=== PATIENT | female | born 1985 | race Caucasian/White ===

== ENCOUNTER → 2017-05-09 | Outpatient (REF) | payer OTHER | LOC: M LAB REF 09:28 | DX: J11.1 Influenza due to unidentified influenza virus with other respiratory manifestations (principal) | CPT/HCPCS: 87633 ==

== ENCOUNTER 2018-01-02 06:27 | Emergency (ER) | payer OTHER ==
[2018-01-02] MEDS: ONDANSETRON 4MG/2ML VIAL (J2405) IV (07:26)
[2018-01-02] MEDS: NS 1,000 ML IV (07:26)
[2018-01-02 07:31] LABS: BASO # 0.1 10^3/uL (0.0-0.2); BASO % 0.3 % (0.0-1.0); EOS % 0.1 % (0.0-3.0); HEMATOCRIT 45.2 % (36.0-47.0); HEMOGLOBIN 14.8 g/dl (12.0-15.5); IMMATURE GRANULOCYTE % 0.4 % (0-3.0); LYMPH # 2.4 10^3/uL (1.5-4.5); LYMPH % 12.9 % (24.0-44.0); MEAN CORPUSCULAR HEMOGLOBIN 28.8 pg (27.0-33.0); MEAN CORPUSCULAR HGB CONC 32.7 g/dl (32.0-36.5); MEAN CORPUSCULAR VOLUME 87.9 fl (80.0-96.0); MONO # 1.1 10^3/uL (0.0-0.8); MONO % 5.7 % (0.0-5.0); NEUTROPHILS # 14.9 10^3/uL (1.8-7.7); NEUTROPHILS % 80.6 % (36.0-66.0); PLATELET COUNT, AUTOMATED 285 10^3/uL (150-450); RED BLOOD COUNT 5.14 10^6/uL (4.00-5.40); WHITE BLOOD COUNT 18.4 10^3/uL (4.0-10.0)
[2018-01-02] MEDS: PANTOPRAZOLE 40MG INJ (PROTONIX) (C9113) IV (07:34)
[2018-01-02 07:44] LABS: ALBUMIN 3.4 GM/DL (3.2-5.2); ALBUMIN/GLOBULIN RATIO 0.97 (1.00-1.93); ALKALINE PHOSPHATASE 111 U/L (45-117); ALT/SGPT 58 U/L (12-78); ANION GAP 10 MEQ/L (8-16); AST/SGOT 26 U/L (7-37); BILIRUBIN,DIRECT 0.1 MG/DL (0.0-0.2); BILIRUBIN,TOTAL 0.4 MG/DL (0.2-1.0); BLOOD UREA NITROGEN 10 MG/DL (7-18); CALCIUM LEVEL 8.6 MG/DL (8.5-10.1); CARBON DIOXIDE LEVEL 21 MEQ/L (21-32); CHLORIDE LEVEL 111 MEQ/L (98-107); CREATININE FOR GFR 0.71 MG/DL (0.55-1.30); GLOMERULAR FILTRATION RATE > 60.0 (>60); GLUCOSE, FASTING 92 MG/DL (70-100); LIPASE 119 U/L (73-393); POTASSIUM SERUM 4.1 MEQ/L (3.5-5.1); SODIUM LEVEL 142 MEQ/L (136-145); TOTAL PROTEIN 6.9 GM/DL (6.4-8.2)
[2018-01-02 07:55] LABS: CONTROL LINE HCG INT CTR LINE PRESENT; HCG, SERUM QUALITATIVE NEGATIVE (NEGATIVE)
[2018-01-02] MEDS ORDERED: ISOVUE-370 76% 100ML VIAL (Q9967) As Ordered (08:14)
== END 2018-01-02 09:58 | disposition home or self-care (01) ==
LOC: M ED 06:27
DX: N83.201 Unspecified ovarian cyst, right side (principal); N80.9 Endometriosis, unspecified; Z88.1 Allergy status to other antibiotic agents; Z91.048 Other nonmedicinal substance allergy status; F17.210 Nicotine dependence, cigarettes, uncomplicated
CPT/HCPCS: C9113

== ENCOUNTER 2018-03-07 17:49 | Emergency (ER) | payer OTHER ==
[2018-03-07] MEDS: CLINDAMYCIN 900 MG in APPROPRIATE DILUENT 1 EA IV (19:01)
[2018-03-07] MEDS: KETOROLAC 30 MG/ML VIAL (J1885) IV (19:01)
[2018-03-07] MEDS: NS 1,000 ML IV (19:01)
[2018-03-07 19:02] LABS: BASO # 0.1 10^3/uL (0.0-0.2); BASO % 0.4 % (0.0-1.0); EOS # 0.2 10^3/uL (0.0-0.50); EOS % 1.3 % (0.0-3.0); HEMATOCRIT 47.1 % (36.0-47.0); HEMOGLOBIN 15.2 g/dl (12.0-15.5); IMMATURE GRANULOCYTE % 0.3 % (0-3.0); LYMPH # 3.5 10^3/uL (1.5-4.5); LYMPH % 29.6 % (24.0-44.0); MEAN CORPUSCULAR HGB CONC 32.3 g/dl (32.0-36.5); MEAN CORPUSCULAR VOLUME 89.7 fl (80.0-96.0); MONO # 1.2 10^3/uL (0.0-0.8); MONO % 10.2 % (0.0-5.0); NEUTROPHILS # 6.9 10^3/uL (1.8-7.7); NEUTROPHILS % 58.2 % (36.0-66.0); PLATELET COUNT, AUTOMATED 264 10^3/uL (150-450); RED BLOOD COUNT 5.25 10^6/uL (4.00-5.40); RED CELL DISTRIBUTION WIDTH 13.1 % (11.5-14.5); WHITE BLOOD COUNT 11.9 10^3/uL (4.0-10.0)
[2018-03-07 19:21] LABS: ERYTHROCYTE SEDIMENTATION RATE 51 mm/hr (0-20)
[2018-03-07 19:28] LABS: ANION GAP 5 MEQ/L (8-16); BLOOD UREA NITROGEN 10 MG/DL (7-18); C REACTIVE PROTEIN QUANTITATIV 1.51 MG/DL (0.00-0.30); CALCIUM LEVEL 8.8 MG/DL (8.5-10.1); CARBON DIOXIDE LEVEL 27 MEQ/L (21-32); CHLORIDE LEVEL 107 MEQ/L (98-107); CREATININE FOR GFR 0.95 MG/DL (0.55-1.30); GLOMERULAR FILTRATION RATE > 60.0 (>60); GLUCOSE, FASTING 86 MG/DL (70-100); POTASSIUM SERUM 4.3 MEQ/L (3.5-5.1); SODIUM LEVEL 139 MEQ/L (136-145)
[2018-03-07] MEDS ORDERED: ISOVUE-370 76% 100ML VIAL (Q9967) As Ordered (19:33)
== END 2018-03-07 21:36 | disposition home or self-care (01) ==
LOC: M ED 17:49
DX: L03.211 Cellulitis of face (principal); I10 Essential (primary) hypertension; N80.9 Endometriosis, unspecified; Q21.0 Ventricular septal defect; Z72.0 Tobacco use; J32.0 Chronic maxillary sinusitis; Z91.89 Other specified personal risk factors, not elsewhere classified; Z88.6 Allergy status to analgesic agent; Z88.5 Allergy status to narcotic agent; Z88.1 Allergy status to other antibiotic agents; Z88.8 Allergy status to other drugs, medicaments and biological substances
CPT/HCPCS: Q9967

== ENCOUNTER → 2018-03-07 | Outpatient (CLI) | payer OTHER ==
[~2018-03-07] MED LIST: ALBU17IN2 INH; BENZ200C70 PO; CLEO300C2 PO; KETO10TAB PO; LABE20TAB PO; REGL10TA6 PO; TYLE1000 PO; TYLE167L PO; ZOFR4TAB14 PO; ZOFR4TAB16 PO
[2018-03-07 13:50] LABS: BASO % 0.3 % (0.0-1.0); EOS # 0.2 10^3/uL (0.0-0.50); EOS % 1.2 % (0.0-3.0); HEMATOCRIT 45.1 % (36.0-47.0); HEMOGLOBIN 14.8 g/dl (12.0-15.5); MEAN CORPUSCULAR HEMOGLOBIN 28.8 pg (27.0-33.0); MEAN CORPUSCULAR HGB CONC 32.8 g/dl (32.0-36.5); MEAN CORPUSCULAR VOLUME 87.7 fl (80.0-96.0); MONO % 8.2 % (0.0-5.0); NEUTROPHILS # 7.3 10^3/uL (1.8-7.7); NEUTROPHILS % 58.1 % (36.0-66.0); PLATELET COUNT, AUTOMATED 253 10^3/uL (150-450); RED BLOOD COUNT 5.14 10^6/uL (4.00-5.40); WHITE BLOOD COUNT 12.6 10^3/uL (4.0-10.0)
[2018-03-07 14:17] LABS: ALBUMIN 3.7 GM/DL (3.2-5.2); ALT/SGPT 24 U/L (12-78); BILIRUBIN,TOTAL 0.4 MG/DL (0.2-1.0); BLOOD UREA NITROGEN 9 MG/DL (7-18); CARBON DIOXIDE LEVEL 26 MEQ/L (21-32); CHLORIDE LEVEL 107 MEQ/L (98-107); CREATININE FOR GFR 0.73 MG/DL (0.55-1.30); GLOMERULAR FILTRATION RATE > 60.0 (>60); GLUCOSE, FASTING 85 MG/DL (70-100); POTASSIUM SERUM 4.2 MEQ/L (3.5-5.1); SODIUM LEVEL 140 MEQ/L (136-145); TOTAL PROTEIN 6.7 GM/DL (6.4-8.2)
== END ==
LOC: M WUC 11:35
PROVIDERS: ATTEND Physician Assistant
DX: L02.01 Cutaneous abscess of face (principal)

== ENCOUNTER 2018-10-29 07:18 | Emergency (ER) | payer MEDICAID, OTHER ==
[~2018-10-29] VITALS: Ht 162.6 cm; Wt 74.9 kg
[2018-10-29 08:14] LABS: BASO % 0.4 % (0.0-1.0); EOS # 0.1 10^3/uL (0.0-0.50); EOS % 0.7 % (0.0-3.0); HEMATOCRIT 44.9 % (36.0-47.0); HEMOGLOBIN 14.5 g/dl (12.0-15.5); LYMPH # 2.8 10^3/uL (1.5-4.5); LYMPH % 30.6 % (24.0-44.0); MEAN CORPUSCULAR HEMOGLOBIN 29.4 pg (27.0-33.0); MEAN CORPUSCULAR HGB CONC 32.3 g/dl (32.0-36.5); MEAN CORPUSCULAR VOLUME 91.1 fl (80.0-96.0); MONO # 0.9 10^3/uL (0.0-0.8); MONO % 9.3 % (0.0-5.0); NEUTROPHILS # 5.4 10^3/uL (1.8-7.7); NEUTROPHILS % 58.6 % (36.0-66.0); PLATELET COUNT, AUTOMATED 259 10^3/uL (150-450); RED BLOOD COUNT 4.93 10^6/uL (4.00-5.40); WHITE BLOOD COUNT 9.1 10^3/uL (4.0-10.0)
[2018-10-29 08:37] LABS: ALBUMIN 3.5 GM/DL (3.2-5.2); ALT/SGPT 14 U/L (12-78); BILIRUBIN,DIRECT 0.1 MG/DL (0.0-0.2); BILIRUBIN,TOTAL 0.4 MG/DL (0.2-1.0); BLOOD UREA NITROGEN 9 MG/DL (7-18); CALCIUM LEVEL 8.3 MG/DL (8.5-10.1); CARBON DIOXIDE LEVEL 24 MEQ/L (21-32); CHLORIDE LEVEL 111 MEQ/L (98-107); CREATININE FOR GFR 0.77 MG/DL (0.55-1.30); GLOMERULAR FILTRATION RATE > 60.0 (>60); GLUCOSE, FASTING 84 MG/DL (70-100); HCG, SERUM QUANTITATIVE 746 MIU/ML; LIPASE 114 U/L (73-393); POTASSIUM SERUM 3.4 MEQ/L (3.5-5.1); SODIUM LEVEL 142 MEQ/L (136-145)
--- NOTE | 2018-10-29 09:51 | REP ---
REASON: Pelvic cramping. No pertinent priors. Transvesical and transvaginal imaging was obtained. The uterus measures 9.2 x 4.4 x 6.1 cm. The parenchymal echo pattern is within normal limits. Within the endometrial cavity, there is a tiny anechoic structure with increased echo surrounding it consistent with a decidual reaction. The mean gestational sac measurement is consistent with a 5 week 0 day gestational age. Doppler interrogation of the gestational sac shows no cardiac activity. There is no evidence of echogenic material within the gestational sac that would be considered consistent with a pole at this time. The right ovary measures 3.1 x 1.6 x 2.4 cm and is within normal limits with an RI of 0.67. The left ovary measures 2.9 x 1.8 x 2.8 cm. Within the right ovary, there is a 2.4 cm size anechoic structure with possibly a corpus luteal cyst. It has slightly irregular johnson and may be decompressing. Doppler of the left ovary shows increased color flow surrounding the hypoechoic structure. IMPRESSION: There is no evidence of a living intrauterine . There does appear to be a gestational sac in the endometrial cavity as described above. I cannot completely rule out the possibility of a pseudogestational sac consistent with an ectopic , however, no definite ectopic is identified at this time. There is no free fluid. If in fact the finding represents an intrauterine based on the mean sac diameter, it is consistent with a 5 week 0 day gestational age. This examination needs to be correlated clinically with close followup. Electronically Signed by Syed Haq DO 10/29/2018 10:06 A
[2018-10-29 10:29] VITALS: BP 128/65
== END 2018-10-29 10:30 | disposition home or self-care (01) ==
LOC: M ED 07:18
DX: O26.891 Other specified pregnancy related conditions, first trimester (principal); O99.281 Endocrine, nutritional and metabolic diseases complicating pregnancy, first trimester; O99.331 Smoking (tobacco) complicating pregnancy, first trimester; O34.81 Maternal care for other abnormalities of pelvic organs, first trimester; Z32.01 Encounter for pregnancy test, result positive; Z86.19 Personal history of other infectious and parasitic diseases; Z87.59 Personal history of other complications of pregnancy, childbirth and the puerperium; Z87.74 Personal history of (corrected) congenital malformations of heart and circulatory system; Z86.79 Personal history of other diseases of the circulatory system; Z88.6 Allergy status to analgesic agent; Z91.89 Other specified personal risk factors, not elsewhere classified; Z88.1 Allergy status to other antibiotic agents; Z88.5 Allergy status to narcotic agent; Z88.8 Allergy status to other drugs, medicaments and biological substances

== ENCOUNTER → 2018-10-31 | Outpatient (REF) | payer MEDICAID | LOC: M LAB REF 12:47 | PROVIDERS: ATTEND Obstetrics & Gynecology | DX: O36.80X0 Pregnancy with inconclusive fetal viability, not applicable or unspecified (principal); Z3A.00 Weeks of gestation of pregnancy not specified ==

== ENCOUNTER → 2018-11-09 | Outpatient (REF) | payer MEDICAID ==
[2018-11-09 17:50] LABS: HEMATOCRIT 42.8 % (36.0-47.0); MEAN CORPUSCULAR HEMOGLOBIN 30.4 pg (27.0-33.0); MEAN CORPUSCULAR HGB CONC 32.7 g/dl (32.0-36.5); MEAN CORPUSCULAR VOLUME 92.8 fl (80.0-96.0); PLATELET COUNT, AUTOMATED 263 10^3/uL (150-450); RED BLOOD COUNT 4.61 10^6/uL (4.00-5.40); WHITE BLOOD COUNT 12.2 10^3/uL (4.0-10.0)
[2018-11-10 11:06] LABS: HEPATITIS C VIRUS ABY INDEX < 0.0 INDEX (<0.8); HIV 1&2 SCREEN CENTAUR NEGATIVE (NEGATIVE); RUBELLA IgG QUALITATIVE IMMUNE (IMMUNE)
== END ==
LOC: M LAB REF 16:47
PROVIDERS: ATTEND Obstetrics & Gynecology
DX: Z34.81 Encounter for supervision of other normal pregnancy, first trimester (principal)

== ENCOUNTER → 2018-11-30 | Outpatient (CLI) | payer OTHER ==
[~2018-11-30] MED LIST changes: -ALBU17IN2 INH; +PROV108A INH
--- NOTE | 2018-11-30 11:44 | REP ---
FIRST TRIMESTER ULTRASOUND: Real-time sonographic evaluation of the gravid uterus is performed. There is a single living intrauterine gestation with an estimated gestational age 9 weeks 1 day based on a crown-rump length of 25 mm, EDC 07/04/2019. heart rate is 172 blood pressure. There is no subchorionic hemorrhage. Complex cystic structure of the left ovary probably represents a corpus luteum, approximately 1.8 cm in diameter. There is no torsion. Electronically Signed by Eddie Nelson MD 11/30/2018 02:07 P
== END ==
LOC: M RAD 08:49
PROVIDERS: ATTEND Obstetrics & Gynecology
DX: R10.2 Pelvic and perineal pain (principal); Z3A.09 9 weeks gestation of pregnancy

== ENCOUNTER 2018-12-08 01:40 | Emergency (ER) | payer OTHER ==
[~2018-12-08] VITALS: Ht 162.6 cm; Wt 74.6 kg
[2018-12-08 02:47] VITALS: BP 129/82
--- NOTE | 2018-12-08 07:28 | REP ---
Clinical: Right angle injury . Technique: AP, lateral, bilateral oblique views. Findings: No acute fracture or dislocation. Skeletal structures and joint spaces are intact and normal. Ankle mortise appears stable. No subcutaneous emphysema or radiodense foreign body. Impression: Normal right ankle radiograph series. Electronically Signed by Raffi Reed MD 12/08/2018 07:20 A
== END 2018-12-08 02:48 | disposition home or self-care (01) ==
LOC: M ED 01:40
DX: O9A.219 Injury, poisoning and certain other consequences of external causes complicating pregnancy, unspecified trimester (principal); S93.401A Sprain of unspecified ligament of right ankle, initial encounter; W10.9XXA Fall (on) (from) unspecified stairs and steps, initial encounter; Y92.009 Unspecified place in unspecified non-institutional (private) residence as the place of occurrence of the external cause; Z88.1 Allergy status to other antibiotic agents; Z88.5 Allergy status to narcotic agent; Z88.6 Allergy status to analgesic agent; Z91.048 Other nonmedicinal substance allergy status

== ENCOUNTER → 2019-03-30 | Outpatient (CLI) | payer OTHER, MEDICAID ==
[2019-03-30 14:36] LABS: HEMATOCRIT 34.7 % (36.0-47.0); HEMOGLOBIN 11.5 g/dl (12.0-15.5); MEAN CORPUSCULAR HEMOGLOBIN 30.6 pg (27.0-33.0); MEAN CORPUSCULAR HGB CONC 33.1 g/dl (32.0-36.5); MEAN CORPUSCULAR VOLUME 92.3 fl (80.0-96.0); PLATELET COUNT, AUTOMATED 245 10^3/uL (150-450); RED BLOOD COUNT 3.76 10^6/uL (4.00-5.40); WHITE BLOOD COUNT 13.5 10^3/uL (4.0-10.0)
== END ==
LOC: M LAB 12:45
PROVIDERS: ATTEND Obstetrics & Gynecology
DX: Z34.82 Encounter for supervision of other normal pregnancy, second trimester (principal); Z36.89 Encounter for other specified antenatal screening

== ENCOUNTER 2019-05-20 19:48 | Outpatient (CLI) | payer OTHER, MEDICAID ==
[~2019-05-20] VITALS: Ht 165.1 cm; Wt 86.1 kg
[2019-05-20 20:02] VITALS: BP 148/80
[2019-05-20] MEDS ORDERED: LACTATED RINGER'S 1000 ML IV STA (20:24)
[2019-05-20] MEDS ORDERED: LR 1,000 ML IV SCH (20:24)
[2019-05-20] MEDS ORDERED: ONDANSETRON 4 MG ORAL DISINTEGRATING TAB (Q0162 PER 1MG) PO ONE (20:30)
[2019-05-20] MEDS ORDERED: ONDANSETRON 4 MG ORAL DISINTEGRATING TAB (Q0162 PER 1MG) As Ordered ONE (20:35)
[2019-05-20 20:36] LABS: HEMATOCRIT 36.6 % (36.0-47.0); HEMOGLOBIN 12.1 g/dl (12.0-15.5); MEAN CORPUSCULAR HGB CONC 33.1 g/dl (32.0-36.5); MEAN CORPUSCULAR VOLUME 87.8 fl (80.0-96.0); PLATELET COUNT, AUTOMATED 334 10^3/uL (150-450); RED BLOOD COUNT 4.17 10^6/uL (4.00-5.40); WHITE BLOOD COUNT 18.9 10^3/uL (4.0-10.0)
[2019-05-20 21:03] LABS: ALBUMIN 2.6 GM/DL (3.2-5.2); ALT/SGPT 8 U/L (12-78); BILIRUBIN,TOTAL 0.2 MG/DL (0.2-1.0); BLOOD UREA NITROGEN 10 MG/DL (7-18); CALCIUM LEVEL 8.7 MG/DL (8.5-10.1); CARBON DIOXIDE LEVEL 19 MEQ/L (21-32); CHLORIDE LEVEL 111 MEQ/L (98-107); CREATININE FOR GFR 0.62 MG/DL (0.55-1.30); GLOMERULAR FILTRATION RATE > 60.0 (>60); GLUCOSE, FASTING 93 MG/DL (70-100); POTASSIUM SERUM 3.3 MEQ/L (3.5-5.1); SODIUM LEVEL 139 MEQ/L (136-145); TOTAL PROTEIN 6.5 GM/DL (6.4-8.2)
[2019-05-20 21:14] VITALS: BP 144/87
--- NOTE | 2019-05-21 07:58 | REP ---
Portable chest x-ray: Single view. History: Cough. Comparison chest x-ray: January 02, 2018. Findings: The lungs are symmetrically aerated and clear. Pleural angles are sharp. Heart size is normal. Pulmonary vasculature is not increased. No significant bony abnormality. Impression: No active disease. Electronically Signed by Wilfrid Ambrosio MD 05/21/2019 07:51 A
--- NOTE | 2019-05-21 14:49 | IPN ---
DATE: 05/20/2019 34-year-old female at 34 weeks gestation who presents with chronic cough for the last 2 months. She has had multiple courses of antibiotics for presumed bronchitis. She has had inhalers and steroids. She has been to urgent care multiple times, as well as seeing Dr. Romero. She vomits occasionally. She takes Zofran, which does help somewhat. She is uncomfortable in her pelvis and lower back. OBJECTIVE: Blood pressure 148/80, pulse 111, temperature 99.7. She is in no apparent distress. Head and neck examination is normal. LUNGS: Clear. HEART: Regular rate and rhythm. ABDOMEN: Nontender. Soft. heart tones category 1. Contractions rare. EXTREMITIES: Nontender. ASSESSMENT: 34-year-old 34 weeks gestation with chronic bronchitis. PLAN: The patient was given IV fluids, as well as sublingual Zofran. We will plan to check metabolic profile and CBC. The patient is aware that we probably will not be able to cure this chronic condition tonight. She does continue smoking, which does not help the situation.
== END 2019-05-20 21:21 | disposition home or self-care (01) ==
LOC: M LDO 19:48
PROVIDERS: ATTEND Specialist
DX: O99.513 Diseases of the respiratory system complicating pregnancy, third trimester (principal); J42 Unspecified chronic bronchitis; O99.333 Smoking (tobacco) complicating pregnancy, third trimester; Z3A.37 37 weeks gestation of pregnancy; F17.200 Nicotine dependence, unspecified, uncomplicated; Z88.6 Allergy status to analgesic agent; Z88.5 Allergy status to narcotic agent; Z88.1 Allergy status to other antibiotic agents; Z88.8 Allergy status to other drugs, medicaments and biological substances; Z91.040 Latex allergy status
CPT/HCPCS: 59025; 71045; 80053; 85027; Q0162

== ENCOUNTER → 2019-06-12 | Outpatient (REF) | payer OTHER, MEDICAID | LOC: M LAB REF 17:29 | PROVIDERS: ATTEND Obstetrics & Gynecology | DX: Z34.83 Encounter for supervision of other normal pregnancy, third trimester (principal); Z3A.00 Weeks of gestation of pregnancy not specified ==

== ENCOUNTER 2019-07-04 12:52 | Inpatient (IN) | payer OTHER, MEDICAID ==
[~2019-07-04] VITALS: Ht 167.6 cm; Wt 90.0 kg
[2019-07-04] VITALS (11 sets, daily range): BP systolic 131–190; BP diastolic 73–132
[2019-07-04] MEDS ORDERED: LACTATED RINGER'S 1000 ML IV STA (13:53)
[2019-07-04] MEDS ORDERED: LR 1,000 ML IV SCH (13:53)
[2019-07-04] MEDS ORDERED: miSOPROStol 50 MCG 1/2 TAB (S0191) PO ONE (14:00)
[2019-07-04 14:42] LABS: HEMATOCRIT 31.7 % (36.0-47.0); HEMOGLOBIN 10.3 g/dl (12.0-15.5); MEAN CORPUSCULAR HEMOGLOBIN 28.5 pg (27.0-33.0); MEAN CORPUSCULAR HGB CONC 32.5 g/dl (32.0-36.5); MEAN CORPUSCULAR VOLUME 87.6 fl (80.0-96.0); PLATELET COUNT, AUTOMATED 289 10^3/uL (150-450); RED BLOOD COUNT 3.62 10^6/uL (4.00-5.40); WHITE BLOOD COUNT 15.8 10^3/uL (4.0-10.0)
[2019-07-04] MEDS ORDERED: OXYTOCIN DRIP 30 UNITS in IV 1 EA IV SCH ×2 (18:30→22:45)
[2019-07-04] MEDS ORDERED: FENTANYL 2MCG/ML ROPIVACAINE 0.2% IN 0.9% NACL 100ML IVBAG As Ordered ONE ×2 (19:04→19:05)
--- NOTE | 2019-07-04 19:06 | HPE ---
DATE OF ADMISSION: 07/04/2019 Leslee is a 34-year-old female 4, para 2-0-1-2 with an EDC of 07/04/2019, EGA 40 weeks gestation who is being admitted for an induction. Upon admission no bleeding, no leakage of fluid. Good movement. Her record reviewed which was essentially unremarkable. She initiated care in her first trimester. lab blood type is A+, rubella immune, hepatitis negative, HIV negative, GC chlamydia negative, 1-hour sugar testing was within normal limits. Her GBS is negative. PAST MEDICAL HISTORY: Significant for anxiety and depression. Questionable heart defect. PAST SURGICAL HISTORY: Denies. SOCIAL HISTORY: Denies any alcohol or drug use. The patient is a chronic cigarette smoker. REVIEW OF SYSTEMS: Unremarkable. FAMILY HISTORY: Significant for heart disease, osteomyelitis and renal carcinoma. MEDICATIONS: vitamins ALLERGIES: AZITHROMYCIN, AMOXICILLIN, PHENERGAN as well as CODEINE. PHYSICAL EXAMINATION: Normal appearing female in no acute distress. Abdomen: Soft, nontender, nondistended. Extremities: No clubbing, cyanosis or edema. Vaginal exam: 2 cm dilated, 70% effaced, fetus at -3 station in vertex position. heart rate tracing reviewed. Category one tracing with irregular contractions. ASSESSMENT Intrauterine at 40 weeks gestation being admitted for elective induction. PLAN Admit to labor and delivery. Cytotec induction initiated. Will continue to monitor. Anticipate delivery. Pain management discussed. The patient opted for an epidural.
[2019-07-04] MEDS ORDERED: ONDANSETRON 4MG/2ML VIAL IV PRN (20:30)
[2019-07-04] MEDS ORDERED: EPIDURAL/PCA KEYS XX PRN (20:30)
[2019-07-04] MEDS ORDERED: ePHEDrine SULFATE 25 MG/5 ML(5MG/ML) SYRINGE IV PRN (20:30)
[2019-07-04] MEDS ORDERED: EPIDURAL COMMENT XX SCH (20:30)
[2019-07-04] MEDS ORDERED: NALOXONE INJ 0.4MG/1ML VIAL (J2310 PER 1MG) IV PRN (20:30)
[2019-07-04] MEDS ORDERED: FENTANYL/ROPIVACAINE/NACL BAG 100 ML EPIDURAL SCH (20:30)
[2019-07-04] MEDS ORDERED: diphenhydrAMINE 50MG/ML VIAL (J1200) IV PRN (20:30)
[2019-07-04] MEDS ORDERED: REFRIGERATOR IV KEYS XX PRN (20:30)
[2019-07-04] MEDS ORDERED: OXYTOCIN 30 UNITS IN 0.9% NaCl 500ML IV BAG (J2590) As Ordered ONE (20:37)
[2019-07-04] MEDS ORDERED: METHYLERGONOVINE MALEATE 0.2 MG TAB PO PRN (22:45)
[2019-07-04] MEDS ORDERED: MEASLES,MUMPS,RUBELLA VACCINE INJ (MMR-II) (90707) SC SCH (22:45)
[2019-07-04] MEDS ORDERED: ANUSOL HC CREAM 30GM TOP PRN (22:45)
[2019-07-04] MEDS ORDERED: IBUPROFEN 600 MG TAB PO PRN (22:45)
[2019-07-04] MEDS ORDERED: ACETAMINOPHEN TAB 650MG DOSE (2X325MG) PO PRN (22:45)
[2019-07-04] MEDS ORDERED: DIBUCAINE 1% OINTMENT 30GM TOP PRN (22:45)
[2019-07-04] MEDS ORDERED: RHOGAM 300 MCG (1500 IU) INJ (J2790) IM SCH (22:45)
[2019-07-04] MEDS ORDERED: DOCUSATE SODIUM 100 MG CAP PO PRN (22:45)
[2019-07-04 23:33] LABS: CORD GAS ABE A -6.3; CORD GAS HCO3 A 23.2 MEQ/L; CORD GAS O2 SAT A 44.1 %; CORD GAS PH A 7.191 UNITS; CORD GAS PO2 A 24.7 mmHg; CORD GAS SBC A 18.1 MEQ/L; CORD GAS TCO2 A 25.1 MEQ/L
[2019-07-05 00:55] VITALS: BP 161/83
[2019-07-05 01:30] VITALS: BP 150/72
[2019-07-05] MEDS: IBUPROFEN 800 MG TAB PO PRN ×2 (02:18→20:47)
[2019-07-05 06:00] VITALS: BP 127/63
[2019-07-05] MEDS: ACETAMINOPHEN 500 MG TAB PO PRN ×2 (08:52→20:53)
--- NOTE | 2019-07-05 08:56 | DN ---
DATE: 07/04/2019 Leslee is a 34-year-old female, 4, para 2-0-1-2 who was admitted at 40 weeks for an induction. She had one Cytotec followed by artificial rupture of membranes and Pitocin. She then progressed to fully dilated, delivered a live male in right occiput anterior position with a nuchal cord times one over an intact perineum. Apgars 9 and 9, birthweight 9 pounds. Placenta delivered spontaneously intact. Three-vessel cord. Perineum, vagina and cervix inspected. No laceration noted. Estimated blood loss 250 mL. Both mother and baby in stable condition.
[2019-07-05] MEDS: PRENATAL VITAMINS CHEWABLE TABLET PO SCH (09:00)
[2019-07-05 18:00] VITALS: BP 139/95
[2019-07-06] MEDS: ACETAMINOPHEN 500 MG TAB PO PRN (06:37)
[2019-07-06] MEDS: IBUPROFEN 800 MG TAB PO PRN (06:37)
[2019-07-06 06:51] VITALS: BP 141/89
[2019-07-06 07:45] VITALS: BP 141/89
[2019-07-06] MEDS: PRENATAL VITAMINS CHEWABLE TABLET PO SCH (09:00)
== END 2019-07-06 11:35 | disposition home or self-care (01) | DRG 560 ==
LOC: M LDI 12:52 → M OBS 07-05 00:59
PROVIDERS: ADMIT Obstetrics & Gynecology; ATTEND Obstetrics & Gynecology
PROC: 10E0XZZ Delivery of Products of Conception, External Approach (ICD-10-PCS; principal; 2019-07-04)
PROC: 10907ZC Drainage of Amniotic Fluid, Therapeutic from Products of Conception, Via Natural or Artificial Opening (ICD-10-PCS; 2019-07-04)
PROC: 3E0DXGC Introduction of Other Therapeutic Substance into Mouth and Pharynx, External Approach (ICD-10-PCS; 2019-07-04)
DX: O48.0 Post-term pregnancy (principal); F17.210 Nicotine dependence, cigarettes, uncomplicated; Z37.0 Single live birth; Z3A.40 40 weeks gestation of pregnancy; O99.334 Smoking (tobacco) complicating childbirth; Z88.0 Allergy status to penicillin; Z88.5 Allergy status to narcotic agent; Z88.8 Allergy status to other drugs, medicaments and biological substances; O69.82X0 Labor and delivery complicated by other cord entanglement, without compression, not applicable or unspecified

== ENCOUNTER → 2020-03-17 | Outpatient (CLI) | payer OTHER ==
[2020-03-17 10:32] LABS: HEMATOCRIT 37.8 % (36.0-47.0); HEMOGLOBIN 11.9 g/dl (12.0-15.5); MEAN CORPUSCULAR HEMOGLOBIN 28.3 pg (27.0-33.0); MEAN CORPUSCULAR HGB CONC 31.5 g/dl (32.0-36.5); MEAN CORPUSCULAR VOLUME 89.8 fl (80.0-96.0); PLATELET COUNT, AUTOMATED 287 10^3/uL (150-450); RED BLOOD COUNT 4.21 10^6/uL (4.00-5.40); WHITE BLOOD COUNT 17.1 10^3/uL (4.0-10.0)
== END ==
LOC: M LAB 08:39
PROVIDERS: ATTEND Obstetrics & Gynecology
DX: Z34.82 Encounter for supervision of other normal pregnancy, second trimester (principal)

== ENCOUNTER → 2020-05-13 | Outpatient (REF) | payer OTHER | LOC: M LAB REF 12:17 | PROVIDERS: ATTEND Obstetrics & Gynecology | DX: Z34.83 Encounter for supervision of other normal pregnancy, third trimester (principal) ==

== ENCOUNTER 2020-05-31 03:37 | Inpatient (IN) | payer OTHER ==
[2020-05-31] VITALS (14 sets, daily range): BP systolic 103–141; BP diastolic 55–90
[~2020-05-31] VITALS: Ht 165.1 cm; Wt 87.7 kg
[2020-05-31] MEDS ORDERED: ONDANSETRON 4MG/2ML VIAL As Ordered ONE (03:55)
[2020-05-31] MEDS ORDERED: ONDANSETRON 4MG/2ML VIAL IV PRN ×2 (03:55→05:15)
[2020-05-31] MEDS ORDERED: LACTATED RINGER'S 1000 ML IV STA (03:55)
[2020-05-31] MEDS ORDERED: FENTANYL 2MCG/ML ROPIVACAINE 0.2% IN 0.9% NACL 100ML IVBAG As Ordered ONE (04:01)
[2020-05-31 04:08] LABS: HEMOGLOBIN 11.7 g/dl (12.0-15.5); MEAN CORPUSCULAR HEMOGLOBIN 28.7 pg (27.0-33.0); MEAN CORPUSCULAR HGB CONC 32.5 g/dl (32.0-36.5); MEAN CORPUSCULAR VOLUME 88.2 fl (80.0-96.0); PLATELET COUNT, AUTOMATED 308 10^3/uL (150-450); RED BLOOD COUNT 4.08 10^6/uL (4.00-5.40); WHITE BLOOD COUNT 17.7 10^3/uL (4.0-10.0)
[2020-05-31] MEDS ORDERED: OXYTOCIN 30 UNITS IN 0.9% NaCl 500ML IV BAG (J2590) As Ordered ONE (04:18)
[2020-05-31] MEDS ORDERED: FENTANYL/ROPIVACAINE/NACL BAG 100 ML EPIDURAL SCH (05:15)
[2020-05-31] MEDS ORDERED: REFRIGERATOR IV KEYS XX PRN (05:15)
[2020-05-31] MEDS ORDERED: EPIDURAL/PCA KEYS XX PRN (05:15)
[2020-05-31] MEDS ORDERED: diphenhydrAMINE 50MG/ML VIAL (J1200) IV PRN (05:15)
[2020-05-31] MEDS ORDERED: ePHEDrine SULFATE 25 MG/5 ML(5MG/ML) SYRINGE IV PRN (05:15)
[2020-05-31] MEDS ORDERED: EPIDURAL COMMENT XX SCH (05:15)
[2020-05-31] MEDS ORDERED: NALOXONE INJ 0.4MG/1ML VIAL (J2310 PER 1MG) IV PRN (05:15)
[2020-05-31] MEDS ORDERED: LACTATED RINGER'S 1000 ML IV PRN (05:15)
[2020-05-31] MEDS ORDERED: OXYTOCIN DRIP 30 UNITS in IV 1 EA IV SCH (06:04)
[2020-05-31] MEDS ORDERED: IBUPROFEN 600MG TAB PO PRN (06:05)
[2020-05-31] MEDS ORDERED: DOCUSATE SODIUM 100MG CAPSULE PO PRN (06:05)
[2020-05-31] MEDS ORDERED: METHYLERGONOVINE MALEATE 0.2 MG TAB PO PRN (06:05)
[2020-05-31] MEDS ORDERED: IBUPROFEN 800 MG TAB PO PRN (06:05)
[2020-05-31] MEDS ORDERED: RHOGAM 300 MCG (1500 IU) INJ (J2790) IM SCH (06:05)
[2020-05-31] MEDS ORDERED: DIBUCAINE 1% OINTMENT 30GM TOP PRN (06:05)
[2020-05-31] MEDS ORDERED: MEASLES,MUMPS,RUBELLA VACCINE INJ (MMR-II) (90707) SC SCH (06:05)
[2020-05-31] MEDS: ACETAMINOPHEN 500 MG TAB PO PRN ×2 (07:35→12:43)
[2020-05-31] MEDS ORDERED: PRENATAL VITAMINS CHEWABLE TABLET PO SCH (09:00)
--- NOTE | 2020-05-31 10:53 | HPE ---
HISTORY AND PHYSICAL DATE OF ADMISSION: 05/31/2020 HISTORY OF PRESENT ILLNESS: Leslee is a 5 para 3-0-1-3 at 39 weeks gestation with an EDC of 06/07/2020 based on last menstrual period, confirmed by first trimester ultrasound. She presents to Labor and Delivery today with a report of contractions that started approximately 2300, they have been painful all night. She denies vaginal bleeding and leakage of fluid. The fetus is active. Her care was initiated at [facility] in the first trimester and has been appropriate throughout. COURSE: Her course has been uncomplicated. OBSTETRIC HISTORY: October 06, 2005: Spontaneous vaginal delivery, 40 weeks gestation, 7 pound, 8 ounce male. September 25, 2013: Vaginal delivery, 40 weeks, pounds, 6 ounce female. Third : Elective termination of . July 04, 2019: Vaginal delivery following induction of labor, 9 pound male. OBSTETRIC LABS: A positive, antibody screen negative. Rubella immune. VDRL nonreactive. Urine culture no growth. Hepatitis B surface antigen negative. HIV negative. Hepatitis C antibody nonreactive. PAP: ASCUS, gonorrhea and chlamydia negative. Gestational diabetic screening normal at 84 and her GBS is negative. PAST MEDICAL HISTORY: Depression, anxiety, menorrhagia. She does have a questionable heart defect. She reports it is a ventricular heart defect and mitral valve prolapse. PAST SURGICAL HISTORY: None. FAMILY HISTORY: Osteomyelitis, renal carcinoma, bacterial carditis, heart attack. SOCIAL HISTORY: The patient is . She presented to Labor and Delivery alone. She reports that she is a current smoker. She denies alcohol and drug use. Denies history of sexually transmitted infections and denies history of abuse, physical, sexual and emotional. ALLERGIES: Azithromycin, Amoxicillin, adhesive tape, Phenergan, codeine and erythromycin. CURRENT MEDICATIONS: Zofran p.r.n., vitamin. OBJECTIVE: A set of vital signs have not been recorded yet. She is alert and oriented x3. She appears extremely uncomfortable with her contractions. She is vomiting. heart rate is 125 with moderate variability, positive accelerations, positive early decelerations. Contractions are every 2-3 minutes, they do palpate strong. Her abdomen is gravid, cephalic presentation. Estimated weight 8 pounds. Sterile vaginal exam upon arrival: 8 cm dilated, 90% effaced, 0 station, bulging bag of water, mid position, normal show. ASSESSMENT: Intrauterine at 39 weeks, heart rate is Category I and in active labor. PLAN: Admit the patient to Labor and Delivery, she is requesting an epidural so routine labs have been ordered, IV fluid bolus started, Zofran for nausea. I do anticipate a normal spontaneous vaginal delivery. She has been verbally consented for emergency surgery and blood products if necessary.
--- NOTE | 2020-05-31 11:03 | DN ---
DELIVERY NOTE DATE OF DELIVERY: 05/31/2020 TIME OF : 0542 GENDER: Male APGARS: 9 and 9. LACERATIONS: None. DESCRIPTION OF DELIVERY: Leslee is a 35-year-old 5, para 4,0,1,4 now who as admitted to labor and delivery in active labor. She utilized intrathecal for her labor coping. She had assisted rupture of membranes for moderate amount of clear fluid at 0501. She was also fully dilated at this time. 30 minutes of passive descent was employed and she then pushed to a normal spontaneous vaginal delivery of a live male infant in OA position with restitution to LOT position at 0542. There was no nuchal cord. The shoulders delivered with gentle downward traction and the corpus immediately followed. [place] male was crying and active, placed on the maternal abdomen for bonding. The cord was clamped x2 once the pulsations ceased and was cut by the father of the baby under my direction. A spontaneous expulsion with three-vessel cord by English mechanism was at 0547. Uterine hemostasis achieved with IV Pitocin rapid infusion and uterine fundal massage. Estimated blood loss 300 mL. Perineum and vagina inspected, noted to be intact. [place] male weighed 3320 gm, 7 pounds 5 ounces, Apgars 9 and 9. Mom is going to bottle feed her son and the family have named him Andrae. At the close of delivery, lab counts, needle counts and instrument counts were correct and verified.
[2020-05-31] MEDS ORDERED: IBUP80TA PO (13:01)
[2020-05-31] MEDS ORDERED: DOK1CAP7 PO (13:01)
--- NOTE | 2020-05-31 17:07 | IPNPDOC ---
Progress Note Date of Service: May 31, 2020 Day#: 0 Progress Note PPD 0 SUBJECT: Leslee is a 35yo [id number] s/p uncomplicated at 0542 this morning after presenting in active labor at term. Earlier in the day she stated that she had a family emergency and needed to leave right away- she stated that either we could discharge her or she would leave AMA, so I went to see her. She has been ambulating, voiding spontaneously without issue and tolerating regular diet. Bottle feeding by choice without issue. Reports lochia is like a heavy period. Denies f/c/n/v/CP/SOB. OBJECTIVE: VITAL SIGNS: Within normal limits, afebrile. Alert and oriented times three. Abdomen: Fundus firm at U-2. Soft, NTTP. Extremities: no pain with palpation of calves ASSESSMENT: Leslee is a 35yo [id number] s/p uncomplicated at 0542 this morning after presenting in active labor at term. Vitals within normal limits, afebrile, hemodynamically stable with no evidence of infection. PLAN: 1. Discharge to home today. Her intends to stay at the hospital in the room with the baby and care for the baby until baby is discharged. 2. Tylenol and Motrin for pain. 3. Patient intends to pursue tubal ligation for contraception 4. Routine PP visit in 6 weeks in clinic with Dr. Romero 5. Discussed return precautions Xuan Wood MD VS, I&O, 24H, Fishbone Vital Signs/I&O Vital Signs Date Time Temp Pulse Resp B/P (MAP) Pulse Ox O2 Delivery O2 Flow Rate FiO2 05/31/20 09:25 97.4 71 16 139/78 (98) 98 Room Air Laboratory Data 24H LABS Laboratory Tests 2 05/31/20 04:00: Nucleated Red Blood Cells % (auto) 0.0 05/31/20 04:24: Serology Scanned Report Hepatitis B Testing CBC/BMP Laboratory Tests 05/31/20 04:00 Xuan Wood MD May 31, 2020 17:07
--- NOTE | 2020-05-31 17:10 | DS.PDOC ---
Discharge Summary General Date of Admission May 31, 2020 at 03:51 Date of Discharge May 31, 2020 Discharge Summary PROCEDURES PERFORMED DURING STAY: spontaneous vaginal delivery ADMITTING DIAGNOSES: 1. SIUP at term in active labor DISCHARGE DIAGNOSES: 1. SIUP at term in active labor COMPLICATIONS/CHIEF COMPLAINT: LABOR. HISTORY OF PRESENT ILLNESS/HOSPITAL COURSE: Leslee is a 35yo [id number] s/p uncomplicated at 0542 this morning after presenting in active labor at term. She stated that she had a family emergency and needed to leave right away- she stated that either we could discharge her or she would leave AMA. At time of discharge, vitals were within normal limits, she was afebrile, hemodynamically stable with no evidence of infection. DISCHARGE MEDICATIONS: Please see below. ALLERGIES: Please see below. PHYSICAL EXAMINATION ON DISCHARGE: VITAL SIGNS: Within normal limits, afebrile. Alert and oriented times three. Abdomen: Fundus firm at U-2. Soft, NTTP. Extremities: no pain with palpation of calves LABORATORY DATA: Please see below. ACTIVITY: As tolerated, vaginal rest 6 weeks DIET: regular DISPOSITION: 01 Home, Self-Care. DISCHARGE PLAN/INSTRUCTIONS: 1. Discharge to home today. Her intends to stay at the hospital in the room with the baby and care for the baby until baby is discharged. 2. Tylenol and Motrin for pain. 3. Patient intends to pursue tubal ligation for contraception 4. Routine PP visit in 6 weeks in clinic with Dr. Romero 5. Discussed return precautions DISCHARGE CONDITION: Stable TIME SPENT ON DISCHARGE: Greater than 20 minutes. Xuan Wood MD Vital Signs/I&Os Vital Signs Date Time Temp Pulse Resp B/P (MAP) Pulse Ox O2 Delivery O2 Flow Rate FiO2 05/31/20 09:25 97.4 71 16 139/78 (98) 98 Room Air Laboratory Data Labs 24H Laboratory Tests 2 05/31/20 04:00: Nucleated Red Blood Cells % (auto) 0.0 05/31/20 04:24: Serology Scanned Report Hepatitis B Testing CBC/BMP Laboratory Tests 05/31/20 04:00 Discharge Medications Scheduled PRN Docusate Sodium (Dok) 100 Mg Capsule, 100 MG PO BID PRN for CONSTIPATION Ibuprofen (Ibuprofen) 800 Mg Tablet, 800 MG PO Q8HP PRN for PAIN LEVEL 6-10 Allergies Coded Allergies: adhesive (Verified Allergy, Intermediate, rash, 07/04/19) erythromycin base (Verified Allergy, Mild, RASH, 07/04/19) codeine (Verified Adverse Reaction, Mild, VOMITING, 07/04/19) hydrocodone (Verified Adverse Reaction, Mild, VOMITING, 07/04/19) promethazine (Verified Adverse Reaction, Mild, VOMITING, 07/04/19) Xuan Wood MD May 31, 2020 17:10
== END 2020-05-31 13:20 | disposition home or self-care (01) | DRG 560 ==
LOC: M LDO 03:37 → M LDI 03:51 → M OBS 09:24
PROVIDERS: ADMIT Advanced Practice Midwife; ATTEND Advanced Practice Midwife
PROC: 10E0XZZ Delivery of Products of Conception, External Approach (ICD-10-PCS; principal; 2020-05-31)
PROC: 10907ZC Drainage of Amniotic Fluid, Therapeutic from Products of Conception, Via Natural or Artificial Opening (ICD-10-PCS; 2020-05-31)
DX: O99.334 Smoking (tobacco) complicating childbirth (principal); F17.210 Nicotine dependence, cigarettes, uncomplicated; Z3A.39 39 weeks gestation of pregnancy; Z37.0 Single live birth

== ENCOUNTER 2020-11-21 06:42 | Emergency (ER) | payer OTHER ==
[~2020-11-21] VITALS: Ht 167.6 cm; Wt 77.7 kg
[~2020-11-21 06:42] MED LIST changes: +DOK1CAP4 PO; +IBUP80TA PO
[2020-11-21] MEDS ORDERED: methylPREDNISolone 125MG 2ML VIAL IM ONE (08:10)
[2020-11-21 08:25] VITALS: BP 145/68
[2020-11-21] MEDS ORDERED: PRED20TA PO (08:28)
[2020-11-21] MEDS ORDERED: TRIA1CR80 TOP (08:29)
== END 2020-11-21 08:37 | disposition home or self-care (01) ==
LOC: M ED 06:42
DX: L25.9 Unspecified contact dermatitis, unspecified cause (principal); F41.9 Anxiety disorder, unspecified; F33.9 Major depressive disorder, recurrent, unspecified; F17.210 Nicotine dependence, cigarettes, uncomplicated; Z86.19 Personal history of other infectious and parasitic diseases
CPT/HCPCS: 84702; 96372; 99283; J2930

== ENCOUNTER → 2021-01-20 | Outpatient (REF) | payer OTHER ==
[~2021-01-20] MED LIST changes: +PRED20TA PO; +TRIA1CR80 TOP
== END ==
LOC: M LAB REF 17:04
PROVIDERS: ATTEND Advanced Practice Midwife
DX: O20.0 Threatened abortion (principal)

== ENCOUNTER → 2021-01-22 | Outpatient (REF) | payer OTHER | LOC: M LAB REF 16:35 | PROVIDERS: ATTEND Obstetrics & Gynecology | DX: O20.0 Threatened abortion (principal) ==

== ENCOUNTER → 2021-01-28 | Outpatient (REF) | payer OTHER, MEDICAID | LOC: M LAB REF 12:15 | PROVIDERS: ATTEND Advanced Practice Midwife | DX: O02.1 Missed abortion (principal) ==

== ENCOUNTER → 2021-04-01 | Outpatient (REF) | payer OTHER, MEDICAID ==
[2021-04-01 17:22] LABS: HEMATOCRIT 45.3 % (36.0-47.0); HEMOGLOBIN 14.5 g/dl (12.0-15.5); MEAN CORPUSCULAR HEMOGLOBIN 28.7 pg (27.0-33.0); MEAN CORPUSCULAR VOLUME 89.5 fl (80.0-96.0); PLATELET COUNT, AUTOMATED 297 10^3/uL (150-450); RED BLOOD COUNT 5.06 10^6/uL (4.00-5.40); WHITE BLOOD COUNT 10.9 10^3/uL (4.0-10.0)
[2021-04-01 18:18] LABS: HCG, SERUM QUANTITATIVE 14574 MIU/ML; HEPATITIS B SURFACE ANTIGEN NEGATIVE (NEGATIVE); HEPATITIS C VIRUS ABY INDEX < 0.0 INDEX (<0.8); HIV 1&2 SCREEN CENTAUR NEGATIVE (NEGATIVE)
== END ==
LOC: M LAB REF 16:18
PROVIDERS: ATTEND Obstetrics & Gynecology
DX: Z32.01 Encounter for pregnancy test, result positive (principal)

== ENCOUNTER → 2021-04-28 | Outpatient (REF) | payer OTHER, MEDICAID | LOC: M LAB REF 16:31 | PROVIDERS: ATTEND Obstetrics & Gynecology | DX: O36.80X0 Pregnancy with inconclusive fetal viability, not applicable or unspecified (principal); O20.0 Threatened abortion; Z3A.00 Weeks of gestation of pregnancy not specified ==

== ENCOUNTER 2021-07-14 18:25 | Emergency (ER) | payer MEDICAID, OTHER ==
[~2021-07-14] VITALS: Ht 165.1 cm; Wt 75.0 kg
[2021-07-14] MEDS ORDERED: ONDA4TAB6 (18:35)
[2021-07-14] MEDS ORDERED: NS 1,000 ML IV ONE (19:00)
[2021-07-14] MEDS ORDERED: ONDANSETRON 4MG/2ML VIAL IV ONE (19:00)
[2021-07-14 19:28] LABS: BASO % 0.4 % (0.0-1.0); EOS % 0.2 % (0.0-3.0); HEMATOCRIT 34.2 % (36.0-47.0); HEMOGLOBIN 11.5 g/dl (12.0-15.5); LYMPH % 17.1 % (24.0-44.0); MEAN CORPUSCULAR HEMOGLOBIN 29.6 pg (27.0-33.0); MEAN CORPUSCULAR HGB CONC 33.6 g/dl (32.0-36.5); MEAN CORPUSCULAR VOLUME 88.1 fl (80.0-96.0); MONO # 0.5 10^3/uL (0.0-0.8); MONO % 8.9 % (2.0-8.0); NEUTROPHILS # 4.1 10^3/uL (1.5-8.5); NEUTROPHILS % 72.5 % (36.0-66.0); PLATELET COUNT, AUTOMATED 165 10^3/uL (150-450); RED BLOOD COUNT 3.88 10^6/uL (4.00-5.40); WHITE BLOOD COUNT 5.6 10^3/uL (4.0-10.0)
[2021-07-14 20:07] LABS: ALT/SGPT 14 U/L (12-78); BLOOD UREA NITROGEN 3 MG/DL (7-18); CALCIUM LEVEL 6.3 MG/DL (8.5-10.1); CARBON DIOXIDE LEVEL 20 MEQ/L (21-32); CHLORIDE LEVEL 118 MEQ/L (98-107); CREATININE FOR GFR 0.39 MG/DL (0.55-1.30); GLOMERULAR FILTRATION RATE > 60.0 (>60); GLUCOSE, FASTING 81 MG/DL (70-100); POTASSIUM SERUM 2.6 MEQ/L (3.5-5.1); SODIUM LEVEL 145 MEQ/L (136-145)
[2021-07-14 20:08] LABS: BILIRUBIN,DIRECT < 0.1 MG/DL (0.0-0.2); BILIRUBIN,TOTAL 0.3 MG/DL (0.2-1.0); LIPASE 92 U/L (73-393); TOTAL PROTEIN 4.2 GM/DL (6.4-8.2)
[2021-07-14] MEDS ORDERED: POTASSIUM CHLORIDE 10MEQ SR TABLET PO ONE (20:15)
[2021-07-14] MEDS ORDERED: KCL 10MEQ/100ML SWI (KRUN) 10 MEQ in IV 1 EA IV ONE (20:15)
[2021-07-14] MEDS ORDERED: ONDA4TAB6 PO (22:05)
[2021-07-14] MEDS ORDERED: BENA25CA4 PO (22:06)
[2021-07-14] MEDS ORDERED: ACET-897 PO (22:06)
[2021-07-14] MEDS ORDERED: HOME MED LIST COMPLETE! XX SCH (22:10)
[2021-07-14 22:20] VITALS: BP 128/71
[2021-07-14 22:59] LABS: RSV AMPLIFICATION NEGATIVE (NEGATIVE)
== END 2021-07-14 23:14 | disposition other institution (70) ==
LOC: M ED 18:25
DX: U07.1 COVID-19 (principal); E87.6 Hypokalemia; E86.0 Dehydration; F17.200 Nicotine dependence, unspecified, uncomplicated; R94.31 Abnormal electrocardiogram [ECG] [EKG]; F41.9 Anxiety disorder, unspecified; Z79.899 Other long term (current) drug therapy; Z91.048 Other nonmedicinal substance allergy status
CPT/HCPCS: 71045; 76815; 80048; 80076; 83690; 85025; 87631; 93005; 96365; 96375; 99284; J2405

== ENCOUNTER → 2021-07-31 | Outpatient (REF) | payer OTHER, MEDICAID ==
[~2021-07-31] MED LIST changes: +ACET-897 PO; +BENA25CA4 PO; +ONDA4TAB6; +ONDA4TAB6 PO
== END ==
LOC: M LAB REF 12:09
PROVIDERS: ATTEND Advanced Practice Midwife
DX: E87.6 Hypokalemia (principal)

== ENCOUNTER 2021-09-04 01:01 | Outpatient (CLI) | payer OTHER, MEDICAID ==
[~2021-09-04] VITALS: Ht 167.6 cm; Wt 81.3 kg
[2021-09-04 01:19] VITALS: BP 132/70
== END 2021-09-04 01:58 | disposition home or self-care (01) ==
LOC: M LDO 01:01
PROVIDERS: ATTEND Obstetrics & Gynecology
DX: O26.853 Spotting complicating pregnancy, third trimester (principal); Z3A.28 28 weeks gestation of pregnancy

== ENCOUNTER → 2021-10-19 | Outpatient (CLI) | payer MEDICAID, OTHER ==
[2021-10-19 09:19] LABS: HEMATOCRIT 33.7 % (36.0-47.0); HEMOGLOBIN 11.3 g/dl (12.0-15.5); MEAN CORPUSCULAR HEMOGLOBIN 30.1 pg (27.0-33.0); MEAN CORPUSCULAR HGB CONC 33.5 g/dl (32.0-36.5); MEAN CORPUSCULAR VOLUME 89.9 fl (80.0-96.0); PLATELET COUNT, AUTOMATED 219 10^3/uL (150-450); RED BLOOD COUNT 3.75 10^6/uL (4.00-5.40)
== END ==
LOC: M LAB 07:44
PROVIDERS: ATTEND Obstetrics & Gynecology
DX: Z34.82 Encounter for supervision of other normal pregnancy, second trimester (principal)

== ENCOUNTER → 2021-10-20 | Outpatient (REF) | payer OTHER, MEDICAID | LOC: M LAB REF 16:18 | PROVIDERS: ATTEND Obstetrics & Gynecology | DX: Z36.89 Encounter for other specified antenatal screening (principal) ==

== ENCOUNTER 2021-10-27 04:29 | Inpatient (IN) | payer MEDICAID, OTHER ==
[~2021-10-27 04:29] MED LIST changes: +ALBU6.7H6 INH; -PROV108A INH
[2021-10-27] MEDS ORDERED: LACTATED RINGER'S 1000 ML IV STA (04:52)
[2021-10-27] MEDS ORDERED: BICITRA 30ML SOLN UDC PO ONE (04:55)
[2021-10-27] MEDS ORDERED: OXYTOCIN INJ 10 UNITS/ML VIAL (J2590) IM PRN (04:55)
[2021-10-27] MEDS ORDERED: LR 1,000 ML IV SCH ×2 (04:55→05:40)
[2021-10-27] MEDS ORDERED: ceFAZolin SOD 2 GM in IV 1 EA IV ONE (04:55)
[2021-10-27] MEDS ORDERED: BUPIVACAINE HCL 0.25% 10ML VIAL SC ONE (04:55)
[2021-10-27] MEDS ORDERED: AZITHROMYCIN INJ 500 MG, VIAL MATE ADAPTER 1 EACH in NS 250 ML IV ONE (04:55)
[2021-10-27] MEDS ORDERED: OXYTOCIN DRIP 30 UNITS in IV 1 EA IV PRN ×4 (04:55)
[2021-10-27] MEDS ORDERED: TRANEXAMIC ACID INJection 1,000 MG in NS 100 ML IV PRN (04:55)
[2021-10-27] MEDS ORDERED: ACETAMINOPHEN 650 MG SUPP PR ONE (04:55)
[2021-10-27] MEDS ORDERED: CARBOPROST TROMETHAMINE 250 MCG/ML AMP IM PRN (04:55)
[2021-10-27] MEDS ORDERED: METHYLERGONOVINE MALEATE 0.2 MG/ML VIAL (J2210) IM PRN (04:55)
[2021-10-27] MEDS ORDERED: MORPHINE PRES-FREE INJ 10 MG/10 ML VIAL As Ordered ONE (04:58)
[2021-10-27 04:59] LABS: HEMATOCRIT 30.2 % (36.0-47.0); HEMOGLOBIN 10.1 g/dl (12.0-15.5); MEAN CORPUSCULAR HEMOGLOBIN 30.1 pg (27.0-33.0); MEAN CORPUSCULAR HGB CONC 33.4 g/dl (32.0-36.5); MEAN CORPUSCULAR VOLUME 89.9 fl (80.0-96.0); PLATELET COUNT, AUTOMATED 216 10^3/uL (150-450); RED BLOOD COUNT 3.36 10^6/uL (4.00-5.40); WHITE BLOOD COUNT 16.6 10^3/uL (4.0-10.0)
[2021-10-27 05:00] VITALS: BP 116/59
[2021-10-27] MEDS ORDERED: OXYTOCIN 30 UNITS IN 0.9% NaCl 500ML IV BAG (J2590) As Ordered ONE (05:00)
[2021-10-27 05:03] VITALS: BP 121/65
[2021-10-27] MEDS ORDERED: MIDAZOLAM INJ 2MG/2ML VIAL (J2250 PER 1MG) As Ordered ONE (05:05)
[2021-10-27] MEDS ORDERED: ROCURONIUM BROMIDE 50 MG/5 ML VIAL As Ordered ONE (05:05)
[2021-10-27] MEDS ORDERED: LIDOCAINE 2% 100MG/5ML SDV (FOR ANES.) As Ordered ONE (05:06)
[2021-10-27] MEDS ORDERED: fentaNYL 100 MCG/2 ML INJECTION As Ordered ONE (05:08)
[2021-10-27] MEDS ORDERED: OXYTOCIN INJ 10 UNITS/ML VIAL (J2590) As Ordered ONE ×2 (05:20→05:46)
[2021-10-27] MEDS ORDERED: ONDANSETRON 4MG 2ML VIAL As Ordered ONE (05:22)
[2021-10-27] MEDS ORDERED: dexameTHASONE 4 MG/ML 1ML VIAL (J1100 PER 1MG) As Ordered ONE (05:22)
[2021-10-27] MEDS ORDERED: SUCCINYLCHOLINE 100 MG/5 ML SYRINGE (J0330) As Ordered ONE (05:34)
[2021-10-27 05:39] LABS: CORD GAS ABE A -23.3; CORD GAS HCO3 A 13.5 MEQ/L; CORD GAS HCO3 V 14.1 MEQ/L; CORD GAS O2 SAT A 30.2 %; CORD GAS PCO2 A 95.6 mmHg; CORD GAS PCO2 V 90.7 mmHg; CORD GAS SBC A 7.4 MEQ/L; CORD GAS SBC V 8.3 MEQ/L; CORD GAS TCO2 A 16.4 MEQ/L; CORD GAS TCO2 V 16.8 MEQ/L
[2021-10-27] MEDS ORDERED: NS 1,000 ML IV SCH (05:40)
[2021-10-27] MEDS ORDERED: ALBUTEROL SULFATE 2.5 MG/0.5 ML INH NEB SOLN INH ONE (05:40)
[2021-10-27] MEDS ORDERED: HYDROMORPHONE HCL 0.5 MG/ 0.5 ML SYRINGE (J1170 PER 1) IV PRN (05:40)
[2021-10-27] MEDS ORDERED: METOCLOPRAMIDE INJ 10MG/2ML VIAL (J2765 PER 1) IV PRN (05:40)
[2021-10-27] MEDS ORDERED: oxyCODONE 5MG TAB PO PRN (05:40)
[2021-10-27] MEDS ORDERED: ONDANSETRON 4MG 2ML VIAL IV PRN (05:40)
[2021-10-27] MEDS ORDERED: fentaNYL 100 MCG/2 ML INJECTION IV PRN (05:40)
[2021-10-27] MEDS ORDERED: MEPERIDINE INJ 25 MG/ML VIAL (J2175) IV PRN (05:40)
[2021-10-27 05:41] LABS: CORD GAS PH A 6.767 UNITS
[2021-10-27 05:42] LABS: CORD GAS PH V 6.808 UNITS
[2021-10-27] MEDS ORDERED: SUGAMMADEX SODIUM 500 MG/5 ML VIAL (BRIDION) As Ordered ONE (05:50)
[2021-10-27] MEDS ORDERED: ACETAMINOPHEN 1000MG 100ML IV BTL (OFIRMEV) (J0131 PER 10MG) As Ordered ONE (06:14)
[2021-10-27] MEDS ORDERED: RHOGAM 300 MCG (1500 IU) INJ (J2790) IM SCH (06:15)
[2021-10-27] MEDS ORDERED: OXYTOCIN DRIP 30 UNITS in IV 1 EA IV SCH (06:15)
[2021-10-27] MEDS ORDERED: SIMETHICONE 80MG CHEW TAB PO PRN (06:15)
[2021-10-27 06:26] LABS: INR 1.21; PROTHROMBIN TIME 15.7 SECONDS (12.7-14.5)
[2021-10-27 06:32] LABS: FIBRINOGEN 158 MG/DL (268-480)
[2021-10-27 07:01] LABS: HEMATOCRIT 22.6 % (36.0-47.0); MEAN CORPUSCULAR HEMOGLOBIN 29.7 pg (27.0-33.0); MEAN CORPUSCULAR HGB CONC 32.3 g/dl (32.0-36.5); MEAN CORPUSCULAR VOLUME 91.9 fl (80.0-96.0); PLATELET COUNT, AUTOMATED 152 10^3/uL (150-450); RED BLOOD COUNT 2.46 10^6/uL (4.00-5.40)
[2021-10-27 07:04] LABS: HEMOGLOBIN 7.3 g/dl (12.0-15.5)
[2021-10-27 07:04] LABS: D-DIMER QUANT < 270 ng/ml (<500)
[2021-10-27 07:30] VITALS: BP 136/72
[2021-10-27 07:43] LABS: AMPHETAMINES URINE REFLEX NEGATIVE (NEGATIVE); BARBITURATES URINE REFLEX NEGATIVE (NEGATIVE); BENZODIAZEPINES URINE REFLEX NEGATIVE (NEGATIVE); CANNABINOIDS URINE REFLEX NEGATIVE (NEGATIVE); COCAINE METABOLITE URINE REFLE NEGATIVE (NEGATIVE); METHADONE URINE REFLEX NEGATIVE (NEGATIVE); OPIATES URINE REFLEX NEGATIVE (NEGATIVE); PHENCYCLIDINE URINE REFLEX NEGATIVE (NEGATIVE)
[2021-10-27 08:00] VITALS: BP 138/98
[2021-10-27 08:48] LABS: HEMATOCRIT 30.4 % (36.0-47.0); MEAN CORPUSCULAR HEMOGLOBIN 29.2 pg (27.0-33.0); MEAN CORPUSCULAR HGB CONC 33.6 g/dl (32.0-36.5); MEAN CORPUSCULAR VOLUME 87.1 fl (80.0-96.0); PLATELET COUNT, AUTOMATED 183 10^3/uL (150-450); RED BLOOD COUNT 3.49 10^6/uL (4.00-5.40); WHITE BLOOD COUNT 22.9 10^3/uL (4.0-10.0)
[2021-10-27 08:51] LABS: HEMOGLOBIN 10.2 g/dl (12.0-15.5)
[2021-10-27] MEDS ORDERED: PRENATAL VITAMINS CHEWABLE TABLET PO SCH (09:00)
[2021-10-27] MEDS ORDERED: NICOTINE 21MG/24HR 1 EA TRANSDERMAL TD SCH (09:00)
[2021-10-27] MEDS ORDERED: DOCUSATE SODIUM 100MG CAPSULE PO SCH (09:00)
[2021-10-27] MEDS ORDERED: KETOROLAC 30 MG/ML 1ML VIAL IV SCH (09:00)
[2021-10-27] MEDS ORDERED: PERCOCET 5MG/325MG TAB PO PRN ×2 (11:10)
[2021-10-27 11:30] VITALS: BP 112/55
[2021-10-27 12:30] VITALS: BP 124/65
[2021-10-28] MEDS ORDERED: IBUPROFEN 800 MG TAB PO SCH (11:00)
[2021-10-29] MEDS ORDERED: MEASLES,MUMPS,RUBELLA VACCINE INJ (MMR-II) (90707) SC.IMMUN ONE (09:00)
== END 2021-10-27 13:33 | disposition home or self-care (01) | DRG 540 ==
LOC: M LDO 04:29 → M LDI 04:53 → M OBS 07:16
PROVIDERS: ADMIT Advanced Practice Midwife; ATTEND Advanced Practice Midwife
PROC: 10D00Z1 Extraction of Products of Conception, Low, Open Approach (ICD-10-PCS; principal; 2021-10-27 06:33)
DX: O45.8X9 Other premature separation of placenta, unspecified trimester (principal); O60.14X0 Preterm labor third trimester with preterm delivery third trimester, not applicable or unspecified; Z37.0 Single live birth; Z3A.36 36 weeks gestation of pregnancy; F17.200 Nicotine dependence, unspecified, uncomplicated; O99.334 Smoking (tobacco) complicating childbirth; O76 Abnormality in fetal heart rate and rhythm complicating labor and delivery

== ENCOUNTER 2021-10-28 20:21 | Emergency (ER) | payer MEDICAID, OTHER ==
[~2021-10-28] VITALS: Ht 162.6 cm; Wt 79.2 kg
[2021-10-28 20:21] VITALS: BP 180/81
[~2021-10-28 20:21] MED LIST changes: -ALBU6.7H6 INH; +PROV108A INH
== END 2021-10-28 21:48 | disposition left against medical advice (07) ==
LOC: M ED 20:21
DX: Z53.21 Procedure and treatment not carried out due to patient leaving prior to being seen by health care provider (principal)

== ENCOUNTER → 2022-01-10 | Outpatient (CLI) | payer OTHER ==
[~2022-01-10] MED LIST changes: +ALBU6.7H6 INH; -PROV108A INH
== END ==
LOC: M LABSMTC 11:01
PROVIDERS: ATTEND Anesthesiology
DX: Z01.812 Encounter for preprocedural laboratory examination (principal); Z20.822 Contact with and (suspected) exposure to COVID-19

== ENCOUNTER 2022-01-13 12:15 | Day surgery (SDC) | payer OTHER ==
[~2022-01-13] VITALS: Ht 165.1 cm; Wt 67.0 kg
[~2022-01-13 12:15] MED LIST changes: +ACETAMINOPHEN 1000MG 100ML IV BTL (OFIRMEV) (J0131 PER 10MG) As Ordered ONE; +BUPIVACAINE/EPIN 0.25% 30 ML VIAL As Ordered ONE; +KETOROLAC 60MG 2ML VIAL As Ordered ONE; +LIDOCAINE 2% 100MG/5ML SDV (FOR ANES.) As Ordered ONE; +MIDAZOLAM INJ 2MG/2ML VIAL (J2250 PER 1MG) As Ordered ONE; +ONDANSETRON 4MG 2ML VIAL As Ordered ONE; +ROCURONIUM BROMIDE 50 MG/5 ML VIAL As Ordered ONE; +SUGAMMADEX SODIUM 500 MG/5 ML VIAL (BRIDION) As Ordered ONE; +dexameTHASONE 4 MG/ML 1ML VIAL (J1100 PER 1MG) As Ordered ONE; +fentaNYL 100 MCG/2 ML INJECTION As Ordered ONE; +propofoL 200 MG/20 ML VIAL As Ordered ONE
[2022-01-13 13:23] LABS: HEMATOCRIT 36.4 % (36.0-47.0); HEMOGLOBIN 11.3 g/dl (12.0-15.5); MEAN CORPUSCULAR HEMOGLOBIN 25.3 pg (27.0-33.0); MEAN CORPUSCULAR VOLUME 81.6 fl (80.0-96.0); PLATELET COUNT, AUTOMATED 320 10^3/uL (150-450); RED BLOOD COUNT 4.46 10^6/uL (4.00-5.40); WHITE BLOOD COUNT 9.5 10^3/uL (4.0-10.0)
[2022-01-13] MEDS ORDERED: ONDANSETRON 4MG 2ML VIAL IV PRN (14:20)
[2022-01-13] MEDS: fentaNYL 100 MCG/2 ML INJECTION IV PRN ×4 (14:36→14:55)
[2022-01-13 15:25] VITALS: BP 128/74
== END 2022-01-13 15:45 | disposition home or self-care (01) ==
LOC: M SDC 12:15
PROVIDERS: ATTEND Obstetrics & Gynecology
DX: Z30.2 Encounter for sterilization (principal); I34.1 Nonrheumatic mitral (valve) prolapse; Z88.5 Allergy status to narcotic agent; Z88.1 Allergy status to other antibiotic agents; F17.210 Nicotine dependence, cigarettes, uncomplicated; F32.A Depression, unspecified
CPT/HCPCS: 36415; 58661; 85027; 86850; 86900; 86901; 88302; J0131; J1100; J1885; J2250; J2405; J3010

== ENCOUNTER → 2024-03-15 | Outpatient (REF) | payer OTHER ==
[~2024-03-15] MED LIST changes: -ACETAMINOPHEN 1000MG 100ML IV BTL (OFIRMEV) (J0131 PER 10MG) As Ordered ONE; -BUPIVACAINE/EPIN 0.25% 30 ML VIAL As Ordered ONE; -KETOROLAC 60MG 2ML VIAL As Ordered ONE; -LIDOCAINE 2% 100MG/5ML SDV (FOR ANES.) As Ordered ONE; -MIDAZOLAM INJ 2MG/2ML VIAL (J2250 PER 1MG) As Ordered ONE; +ONDA-282; +ONDA-282 PO; -ONDA4TAB6; -ONDA4TAB6 PO; -ONDANSETRON 4MG 2ML VIAL As Ordered ONE; -ROCURONIUM BROMIDE 50 MG/5 ML VIAL As Ordered ONE; -SUGAMMADEX SODIUM 500 MG/5 ML VIAL (BRIDION) As Ordered ONE; -dexameTHASONE 4 MG/ML 1ML VIAL (J1100 PER 1MG) As Ordered ONE; -fentaNYL 100 MCG/2 ML INJECTION As Ordered ONE; -propofoL 200 MG/20 ML VIAL As Ordered ONE
== END ==
LOC: M LAB REF 17:17
PROVIDERS: ATTEND Physician Assistant Medical
DX: B34.9 Viral infection, unspecified (principal)

== ENCOUNTER → 2024-07-02 | Outpatient (CLI) | payer OTHER ==
[2024-07-02 10:14] LABS: HEMOGLOBIN A1c 4.4 % (4.0-6.0)
[2024-07-02 10:40] LABS: TOTAL 25(OH) VITAMIN D 11.1 NG/ML (20.0-100.0)
[2024-07-02 10:41] LABS: ALBUMIN 3.6 G/DL (3.2-5.2); ALKALINE PHOSPHATASE 84 U/L (35-104); ALT/SGPT 10 U/L (7.0-40); AST/SGOT < 8 U/L (<34); BILIRUBIN,TOTAL 0.4 MG/DL (0.3-1.2); BLOOD UREA NITROGEN 11 MG/DL (9-23); CALCIUM LEVEL 9.1 MG/DL (8.5-10.1); CARBON DIOXIDE LEVEL 25 MMOL/L (20-31); CHLORIDE LEVEL 112 MMOL/L (98-107); CHOLESTEROL LEVEL 193 MG/DL (<200); CHOLESTEROL RISK RATIO 5.28 (<5); CREATININE FOR GFR 0.67 MG/DL (0.55-1.30); GLOMERULAR FILTRATION RATE > 90.0 (>60); GLUCOSE, FASTING 83 MG/DL (60-100); HDL CHOLESTEROL 36.5 MG/DL (>40); LDL CHOLESTEROL 137.5 MG/DL (<100); NON-HDL-C 156.5 MG/DL; POTASSIUM SERUM 3.9 MMOL/L (3.5-5.1); SODIUM LEVEL 143 MMOL/L (136-145); TOTAL PROTEIN 6.6 G/DL (5.7-8.2); TRIGLYCERIDES LEVEL 95 MG/DL (<150)
== END ==
LOC: M LAB 08:54
PROVIDERS: ATTEND Student in an Organized Health Care Education/Training Program
DX: E66.3 Overweight (principal); Z68.28 Body mass index [BMI] 28.0-28.9, adult

== ENCOUNTER → 2024-07-13 | Outpatient (REF) | payer OTHER | LOC: M LAB REF 14:21 | PROVIDERS: ATTEND Student in an Organized Health Care Education/Training Program | DX: R79.89 Other specified abnormal findings of blood chemistry (principal) ==

== ENCOUNTER → 2025-03-07 | Outpatient (REF) | payer OTHER ==
[2025-03-07 13:09] LABS: CHOLESTEROL LEVEL 196 MG/DL (<200); CHOLESTEROL RISK RATIO 4.05 (<5); LDL CHOLESTEROL 129.3 MG/DL (<100); NON-HDL-C 147.7 MG/DL; TRIGLYCERIDES LEVEL 92 MG/DL (<150)
[2025-03-07 13:14] LABS: FREE T4 1.23 NG/DL (0.89-1.76)
[2025-03-07 13:16] LABS: THYROID PEROXIDASE ANTIBODY < 28.0 U/ML (<60.0)
[2025-03-07 13:18] LABS: THYROGLOBULIN ANTIBODY 16.0 U/ML (<60.0)
== END ==
LOC: M LAB REF 12:26
PROVIDERS: ATTEND Student in an Organized Health Care Education/Training Program
DX: R79.89 Other specified abnormal findings of blood chemistry (principal); E78.5 Hyperlipidemia, unspecified